=== PATIENT | female | born 1940 | race Caucasian/White ===

== ENCOUNTER → 2024-02-11 | Outpatient (CLI) | payer OTHER ==
[2024-02-11 15:31] LABS: Alanine Aminotransfer (ALT/SGP 26 U/L (12-78); Albumin, Blood 3.7 g/dL (3.4-5.0); Albumin/Globulin Ratio 1.2 (0.8-1.8); Alk Phos 80 U/L (50-136); Anion Gap 6 mmol/L (3-11); Aspartate Aminotrans (AST/SGOT 19 U/L (12-37); Bilirubin, Total 0.3 mg/dL (0.1-1.0); Blood Urea Nitrogen 28 mg/dL (8-24); Bun/Creatinine Ratio 33.3 (12.0-20.0); CO2, Blood 29 mmol/L (21-32); Calcium, Blood 9.4 mg/dL (8.5-10.1); Chloride, Blood 111 mmol/L (98-108); Cholesterol 185 mg/dL (50-200); Creatinine, Blood 0.84 mg/dL (0.40-1.00); Glomerular Filtration Rate 69 (60-); Glucose, Blood 97 mg/dL (70-99); HDL Cholesterol 62 mg/dL (>39); LDL/HDL RATIO 1.4; Low Density Lipoprotein Chol 89 mg/dL (0-110); Potassium, Blood 4.6 mmol/L (3.5-5.5); Sodium, Blood 141 mmol/L (136-145); Total Protein, Blood 6.7 g/dL (6.4-8.2); Triglycerides 172 mg/dL (30-160); Very Low Density Lipoprot Chol 34 mg/dL (6-32)
== END | disposition home or self-care (01) ==
LOC: LAB 13:58 → LAB SHORT 13:58
PROVIDERS: Family Medicine
DX: M85.80 Other specified disorders of bone density and structure, unspecified site (principal); E78.00 Pure hypercholesterolemia, unspecified; Z78.0 Asymptomatic menopausal state
CPT/HCPCS: 80053; 80061; 82306

== ENCOUNTER → 2024-09-04 | Outpatient (CLI) | payer OTHER ==
[2024-09-04 17:42] LABS: CHOL/HDL RATIO 3.4; Cholesterol 161 mg/dL (50-200); HDL Cholesterol 48 mg/dL (>39); LDL/HDL RATIO 1.6; Low Density Lipoprotein Chol 75 mg/dL (0-110); Triglycerides 190 mg/dL (30-160); Very Low Density Lipoprot Chol 38 mg/dL (6-32)
== END ==
LOC: LAB 11:20 → LAB SHORT 11:20
PROVIDERS: Family Medicine
DX: E78.1 Pure hyperglyceridemia (principal); R60.0 Localized edema
CPT/HCPCS: 80061; 83880